=== PATIENT | male | born 1995 ===

== ENCOUNTER 2019-06-26 15:34 | Emergency (ER) | payer OTHER ==
[~2019-06-26] VITALS: Ht 163 cm; Wt 56.0 kg
[2019-06-26 15:49] VITALS: TEMP 101.7
[2019-06-26 17:38] LABS: STREP SCREEN POSITIVE
[2019-06-26 18:17] VITALS: BP 122/77; PULSE 74
== END 2019-06-26 18:18 | disposition home or self-care (01) ==
LOC: COL.ER 15:34
PROVIDERS: Nurse Practitioner
DX: J02.0 Streptococcal pharyngitis (principal)
CPT/HCPCS: J0561